=== PATIENT | male | born 1945 | race Caucasian/White ===

== ENCOUNTER 2020-08-29 03:03 | Outpatient (CLI) | payer OTHER, SELFPAY ==
[2020-08-29 12:22] LABS: HCT 48.5 % (40.0-50.0); HGB 16.6 g/dL (13.5-17.5); MCH 33.3 pg (27.0-33.0); MCHC 34.2 % (32.0-36.0); MCV 97.2 fL (80-95); MPV 9.9 fL (8.0-11.0); Platelet Count 219 10^3/uL (130-400); RBC 4.99 10^6/uL (4.36-5.78); RDW 12.1 % (11.8-14.1); RDW-SD 43.5 fL; WBC 8.98 10^3/uL (4.4-10.8)
[2020-08-29 12:34] LABS: ALT 41 U/L (16-63); AST 24 U/L (15-37); Albumin 3.9 g/dL (3.4-5.0); Alkaline Phosphatase 94 U/L (46-116); Anion Gap 6.6 mmol/L (3-11); BUN 25 mg/dL (7-18); Bilirubin, Total 0.6 mg/dL (0.2-1.0); CO2 29.4 mmol/L (21.0-32.0); CREATININE 1.12 mg/dL (0.70-1.30); Calcium 9.3 mg/dL (8.5-10.1); Calculated LDL 120 mg/dL (<100); Chloride 103 mmol/L (98-107); Cholesterol 197 mg/dL (<200); Glucose 101 mg/dL (74-106); HDL Cholesterol 42 mg/dL (40-60); Potassium 4.5 mmol/L (3.5-5.1); Sodium 139 mmol/L (136-145); Total Protein 7.3 g/dL (6.4-8.2); Triglyceride 175 mg/dL (<150)
[2020-08-30 08:45] LABS: PSA, Screening 9.7 ng/mL (0.0-6.5)
== END 2020-08-29 03:23 ==
PROVIDERS: PCP Family Medicine; Visit Provider Family Medicine
DX: Z00.00 Encounter for general adult medical examination without abnormal findings (principal); E78.5 Hyperlipidemia, unspecified; I10 Essential (primary) hypertension; I48.0 Paroxysmal atrial fibrillation; R97.20 Elevated prostate specific antigen [PSA]; Z12.5 Encounter for screening for malignant neoplasm of prostate
CPT/HCPCS: 36415; 80053; 80061; 84153; 85027

== ENCOUNTER 2020-09-26 18:35 | Outpatient (REF) | payer OTHER, SELFPAY | END 2020-09-26 18:55 | LOC: LBN 18:35 | PROVIDERS: PCP Family Medicine; Visit Provider Nurse Practitioner Gerontology | DX: R97.20 Elevated prostate specific antigen [PSA] (principal) | CPT/HCPCS: 84154 ==

== ENCOUNTER 2021-03-25 08:39 | Outpatient (CLI) | payer OTHER, SELFPAY ==
[2021-03-25 22:08] LABS: PSA, Diagnostic 11.6 ng/mL (0.0-6.5)
== END 2021-03-25 08:40 | disposition home or self-care (01) ==
PROVIDERS: Nurse Practitioner Gerontology; PCP Nurse Practitioner Family; Visit Provider Nurse Practitioner Family
DX: R97.20 Elevated prostate specific antigen [PSA] (principal)
CPT/HCPCS: 36415; 84153; 84154

== ENCOUNTER → 2021-04-22 09:20 | Outpatient (BNVA) | payer OTHER, SELFPAY | PROVIDERS: PCP Nurse Practitioner Family; Referring Provider Family Medicine; Visit Provider Nurse Practitioner Gerontology | DX: R39.89 Other symptoms and signs involving the genitourinary system (principal); R97.20 Elevated prostate specific antigen [PSA] | CPT/HCPCS: 99214 ==

== ENCOUNTER 2021-10-13 04:03 | Outpatient (CLI) | payer OTHER, SELFPAY | END 2021-10-13 04:04 | disposition home or self-care (01) | LOC: LBO 04:04 | PROVIDERS: PCP Nurse Practitioner Family; Visit Provider Nurse Practitioner Gerontology | DX: R97.20 Elevated prostate specific antigen [PSA] (principal) | CPT/HCPCS: 36415; 84153 ==

== ENCOUNTER → 2021-10-22 08:14 | Outpatient (BNVA) | payer OTHER, SELFPAY | PROVIDERS: PCP Nurse Practitioner Family; Visit Provider Nurse Practitioner Gerontology | DX: R97.20 Elevated prostate specific antigen [PSA] (principal); N40.1 Benign prostatic hyperplasia with lower urinary tract symptoms; R35.1 Nocturia | CPT/HCPCS: 99214 ==

== ENCOUNTER 2022-04-15 03:17 | Outpatient (CLI) | payer OTHER, SELFPAY ==
[2022-04-15 20:48] LABS: PSA, Diagnostic 9.4 ng/mL (<=6.5)
== END 2022-04-15 03:18 | disposition home or self-care (01) ==
LOC: LBO 03:17
PROVIDERS: PCP Nurse Practitioner Family; Visit Provider Nurse Practitioner Gerontology
DX: R97.20 Elevated prostate specific antigen [PSA] (principal)
CPT/HCPCS: 36415; 84153

== ENCOUNTER → 2022-04-30 08:44 | Outpatient (BNVA) | payer OTHER, SELFPAY | PROVIDERS: PCP Nurse Practitioner Family; Referring Provider Nurse Practitioner Family; Visit Provider Nurse Practitioner Gerontology | DX: N40.1 Benign prostatic hyperplasia with lower urinary tract symptoms (principal); R35.1 Nocturia; R97.20 Elevated prostate specific antigen [PSA] | CPT/HCPCS: 99214 ==

== ENCOUNTER 2022-08-21 01:11 | Outpatient (CLI) | payer OTHER, SELFPAY ==
[2022-08-21 10:30] LABS: CREATININE 1.1 mg/dL (0.70-1.30); Estimated GFR 68.71 (mL/min/1.73m2); Potassium 3.9 mmol/L (3.5-5.1)
== END 2022-08-21 01:12 | disposition home or self-care (01) ==
LOC: LOS 01:11
PROVIDERS: PCP Nurse Practitioner Family; Visit Provider Nurse Practitioner Family
DX: I10 Essential (primary) hypertension (principal)
CPT/HCPCS: 36415; 82565; 84132

== ENCOUNTER 2022-10-22 02:13 | Outpatient (CLI) | payer MEDICARE, SELFPAY ==
[2022-10-22 17:51] LABS: PSA, Diagnostic 8.6 ng/mL (<=6.5)
== END 2022-10-22 02:14 | disposition home or self-care (01) ==
PROVIDERS: PCP Nurse Practitioner Family; Visit Provider Nurse Practitioner Gerontology
DX: R97.20 Elevated prostate specific antigen [PSA] (principal)
CPT/HCPCS: 36415; 84153

== ENCOUNTER → 2022-10-29 08:19 | Outpatient (BNVA) | payer MEDICARE, SELFPAY | PROVIDERS: PCP Nurse Practitioner Family; Visit Provider Nurse Practitioner Gerontology | DX: R97.20 Elevated prostate specific antigen [PSA] (principal) | CPT/HCPCS: 99213 ==

== ENCOUNTER → 2023-02-04 09:05 | Outpatient (BNVA) | payer MEDICARE, SELFPAY | PROVIDERS: PCP Nurse Practitioner Family; Referring Provider Nurse Practitioner Family; Visit Provider Physical Therapy Assistant | DX: Z12.11 Encounter for screening for malignant neoplasm of colon (principal) ==

== ENCOUNTER 2023-02-18 07:00 | Day surgery (SDC) | payer MEDICARE, SELFPAY ==
--- NOTE | 2023-02-17 19:16 | W.PM.DSUDISC ---
Date of service: 02/18/23 Time of Service: 08:54 Discharge Plan Disposition Patient Disposition: Home Condition: Good Discharge Details Reason For Visit: Screening colonoscopy Attending Provider: Timmy López Primary Care Provider: Ruslan Mendoza Home Meds and New Rx's Prescriptions: Continued losartan 50 mg tablet 50 mg PO DAILY Qty: 90 3RF trazodone 50 mg tablet 50 mg PO QHS PRN (Reason: sleep) Qty: 90 3RF atenolol 50 mg tablet 50 mg PO BID Qty: 180 2RF aspirin 325 MG tablet 1 tab DAILY Discontinued bisacodyl [Dulcolax (bisacodyl)] 5 mg tablet,delayed release (DR/EC) 5 mg PO ONCE Qty: 4 0RF Rx Instructions: Take per colonoscopy instructions provided by ordering providers office polyethylene glycol 3350 17 gram/dose powder 17 g PO ONCE Qty: 238 0RF Rx Instructions: Take per colonoscopy instructions provided by ordering providers office Discharge Instructions Instructions: Diverticulosis (GEN), Diverticulosis Diet (GEN), Colorectal Polyps (GEN) Additional Instructions: Wilber, we were able to complete your colonoscopy today without any difficulty. I did find 2 polyps, immediately adjacent to 1 another, around 45 cm from your anus. They have some features that look more like inflammatory polyps than true polyps, but I sent both off for official pathology reports. I will be in touch when I have those results with any final recommendations. You also have a fair amount of sigmoid diverticulosis. We have attached some information here regarding general management of diverticular disease. Based on your family history, you should consider another screening colonoscopy in 5 years. However, you should note that there is not a consensus about the benefit of screening colonoscopy among patients approaching 85 years of age. I would encourage you to discuss this with your primary care doctor at that point. 1. If tolerated, consume a soft, low fiber diet for 1-2 days. 2. Do not drive, drink alcohol, operate machinery, make critical decisions, or do activities that require coordination or balance for 24 hours. 3. Because air was put into your colon during the procedure, expelling air from your rectum (passing gas or farting) is normal. 4. You may not have a bowel movement for 1-3 days because of the colonoscopy prep. This is normal. 5. Go directly to the emergency room if you notice any of the following: Develop chills (warm to touch), or if you have a thermometer and your temperature is above 101 Difficulty breathing or difficultly swallowing Persistent vomiting Severe abdominal pain, other than gas cramps Severe chest pain Black, tarry stools Any bleeding ? exceeding one tablespoon 6. Call your physician if the site where your intravenous was started becomes red, swollen, painful, and warm to touch. 7. Your physician has reviewed your pre-procedure medications. Please continue to take those medications as previously ordered. You will be given specific information/education regarding any changes to your medications before leaving. Activity:: Activity as Tolerated Diet:: As Tolerated Discharge Orders Discharge Orders: Discharge Order (Routine); Ordered 02/17/23 Ordered By: Timmy López DS: Diagnosis Discharge Diagnosis (1) Screening for colon cancer: Status: Acute Asessment and Plan: Follow-up on polypectomy results
--- NOTE | 2023-02-17 19:18 | W.COLOREPORT ---
Date of service: 02/18/23 Time of Service: 08:56 Colonoscopy Report Date of procedure: 02/18/23 Pre-op diagnosis general: Screening colonsocopy Post-op diagnosis procedure note: other (Diverticulosis, colon polyps) Procedure: Colonoscopy with polypectomy Surgeon: Timmy López Anesthesia Type: General:No Airway Estimated blood loss (mL): 5 Pathology: other (Colon polyp at 45 cm) Complications: None Disposition: same day Indications: Alex is a 77 year old male with 2 second degree relatives with colon cancer. He is here for a screening colonoscopy Prep: Miralax/Dulcolax Procedure Start Time: 08:29 Procedure End Time: 08:43 Retraction Time: 9 Findings: To 0.25 cm polyps at 45 cm cold forceps Procedure Description: After the induction of monitored anesthetic care, and with the patient in left lateral decubitus position, I began by performing an external anorectal exam.? Perineum and skin were normal, as was the anal verge.? There was no evidence of external hemorrhoids.? Next, I performed a digital rectal exam.? I did not appreciate any abnormal findings.? Next, I advanced a colonoscope into the rectal vault.? I performed retroflexion.? There is grade 1 internal hemorrhoids.? Using insufflation, I then advanced the colonoscope beyond the rectal folds and into the sigmoid colon before advancing towards the cecum.? The quality of the prep was excellent.? There was sigmoid diverticulosis the scope was noted to be in the cecum by identification of the ileocecal valve and appendiceal orifice.? I then began withdrawing the colonoscope using repeated irrigation as necessary for full evaluation of the colonic mucosa. Around 45 cm from the anal verge I identified a 0.25 cm polyp. ?It appeared sessile in character. ?I was able to remove this with a cold forcep polypectomy. ?I examined the site, and there was minimal bleeding. ?Once this was completed, I continued to withdraw the scope and examine the remainder of the colonic mucosa.?Once the scope was withdrawn to the level of the rectum, great care was taken to examine portions of the rectal folds.? Finally, the scope was withdrawn and the patient was brought to the same-day surgery recovery unit as the anesthetic wore off. ?The findings and instructions were shared with the patient prior to discharge.
--- NOTE | 2023-02-18 08:38 | BOWEL_PTH ---
PATIENT: Wilber Ortiz LOC: [facility] U#:[id number] AGE/SX: 77/M ROOM: RE02/18/[address]: Timmy López MD : [id number] BED: DIS: 02/18/2023 SPEC #: [id number] RECD: 02/18/23 12:42 STATUS: TARAH REQ #: [id number] PETER: 02/18/23 08:[address]: Timmy López DEPT: Surgical Specimen RECD BY: Fozia Michele ENTERED: 02/18/23 12:42 SP TYPE: Bowel OTHR DR: Ruslan Mendoza, SHIP CAPTAIN Tissues: 1 - BIOPSY BOWEL Procedures: GROSS AND MICRO LEVEL 4 Comments: [id number]
[2023-02-18 08:52] VITALS: BP 127/68; PULSE 69; RESP 16; TEMP 36; O2SAT 98
--- NOTE | 2023-02-18 09:10 | W.ANESPOSTOP ---
Postoperative Evaluation Date, Time and Location Date Performed: 02/18/23 Time Performed: 09:10 Patient Location: Day Surgery Unit Vital Signs Most Recent Imported Vital Signs: Most Recent Vital Signs Temp Pulse Resp BP Pulse Ox 36 C L 69 16 127/68 98 02/18/23 08:52 02/18/23 08:52 02/18/23 08:52 02/18/23 08:52 02/18/23 08:52 Pain Score Most Recent Pain Score: Most Recent Pain Score Pain Level 0 02/18/23 08:52 Assessment Mental Status: Awake (Alert & Oriented to Patient Baseline) Airway and Respiratory Function: Patent airway with normal (patient baseline) respiratory exam Cardiovascular Function: Hemodynamically Stable Hydration Status: Adequately Hydrated Nausea & Vomiting: No Nausea or Vomiting Pain: Pt. Denies Any Pain Peripheral Nerve Block: Patient did not receive a nerve block
[2023-02-18 09:22] VITALS: BP 159/74; PULSE 56; RESP 18; TEMP 36.4; O2SAT 98
== END 2023-02-18 09:47 | disposition home or self-care (01) ==
PROVIDERS: PCP Nurse Practitioner Family; Visit Provider Surgery
PROC: 0DJD8ZZ Inspection of Lower Intestinal Tract, Via Natural or Artificial Opening Endoscopic (ICD-10-PCS; CPT 45378; principal; 2023-02-18 08:15)
DX: Z12.11 Encounter for screening for malignant neoplasm of colon (principal); K63.5 Polyp of colon; K57.30 Diverticulosis of large intestine without perforation or abscess without bleeding; Z80.0 Family history of malignant neoplasm of digestive organs; K64.0 First degree hemorrhoids; K63.89 Other specified diseases of intestine
CPT/HCPCS: 45380; 88305; J2001

== ENCOUNTER 2023-04-28 04:02 | Outpatient (CLI) | payer MEDICARE, SELFPAY ==
[2023-04-28 21:53] LABS: PSA, Diagnostic 8.7 ng/mL (<=6.5)
== END 2023-04-28 04:03 | disposition home or self-care (01) ==
LOC: LBO 04:02
PROVIDERS: PCP Nurse Practitioner Family; Visit Provider Nurse Practitioner Gerontology
DX: R97.20 Elevated prostate specific antigen [PSA] (principal)
CPT/HCPCS: 36415; 84153

== ENCOUNTER → 2023-05-05 08:10 | Outpatient (BNVA) | payer MEDICARE, SELFPAY | PROVIDERS: PCP Nurse Practitioner Family; Visit Provider Nurse Practitioner Gerontology | DX: R97.20 Elevated prostate specific antigen [PSA] (principal); I10 Essential (primary) hypertension | CPT/HCPCS: 99213 ==

== ENCOUNTER 2023-09-14 04:02 | Outpatient (CLI) | payer MEDICARE, SELFPAY ==
[2023-09-14 14:23] LABS: Calculated LDL 95 mg/dL (<100); Cholesterol 174 mg/dL (<200); Estimated GFR 76.56 (mL/min/1.73m2); HDL Cholesterol 46 mg/dL (40-60); Potassium 3.9 mmol/L (3.5-5.1); Triglyceride 166 mg/dL (<150)
== END 2023-09-14 04:03 | disposition home or self-care (01) ==
LOC: LBO 04:03
PROVIDERS: PCP Nurse Practitioner Family; Visit Provider Nurse Practitioner Family
DX: I10 Essential (primary) hypertension (principal); Z13.6 Encounter for screening for cardiovascular disorders
CPT/HCPCS: 36415; 80061; 82565; 84132

== ENCOUNTER 2023-10-26 04:58 | Outpatient (CLI) | payer MEDICARE, SELFPAY ==
[2023-10-26 17:56] LABS: PSA, Diagnostic 8.6 ng/mL (<=6.5)
== END 2023-10-26 04:59 | disposition home or self-care (01) ==
LOC: LBO 04:58
PROVIDERS: PCP Nurse Practitioner Family; Visit Provider Nurse Practitioner Gerontology
DX: R97.20 Elevated prostate specific antigen [PSA] (principal)
CPT/HCPCS: 36415; 84153

== ENCOUNTER → 2023-11-02 08:16 | Outpatient (BNVA) | payer MEDICARE, SELFPAY | PROVIDERS: PCP Nurse Practitioner Family; Visit Provider Nurse Practitioner Gerontology | DX: N40.1 Benign prostatic hyperplasia with lower urinary tract symptoms (principal); R35.1 Nocturia; R97.20 Elevated prostate specific antigen [PSA] | CPT/HCPCS: 99213 ==

== ENCOUNTER 2023-11-30 05:21 | Outpatient (CLI) | payer MEDICARE, SELFPAY ==
[2023-11-30 10:03] LABS: Hemoglobin A1C 5.5 % (<5.7)
== END 2023-11-30 05:22 | disposition home or self-care (01) ==
PROVIDERS: PCP Nurse Practitioner Family; Visit Provider Nurse Practitioner Family
DX: Z13.1 Encounter for screening for diabetes mellitus (principal)
CPT/HCPCS: 36415; 83036

== ENCOUNTER 2024-04-25 02:00 | Outpatient (CLI) | payer MEDICARE, SELFPAY ==
[2024-04-25 19:45] LABS: PSA, Diagnostic 8.9 ng/mL (<=6.5)
== END 2024-04-25 02:01 | disposition home or self-care (01) ==
LOC: LBO 02:01
PROVIDERS: PCP Nurse Practitioner Family; Visit Provider Nurse Practitioner Gerontology
DX: R97.20 Elevated prostate specific antigen [PSA] (principal)
CPT/HCPCS: 36415; 84153

== ENCOUNTER → 2024-05-02 08:14 | Outpatient (BNVA) | payer MEDICARE, SELFPAY | PROVIDERS: PCP Nurse Practitioner Family; Visit Provider Nurse Practitioner Gerontology | DX: R35.1 Nocturia (principal); R97.20 Elevated prostate specific antigen [PSA] | CPT/HCPCS: 51798; 99213 ==

== ENCOUNTER → 2024-05-02 10:29 | Outpatient (BNVA) | payer MEDICARE, SELFPAY | PROVIDERS: PCP Nurse Practitioner Family; Referring Provider Nurse Practitioner Family; Visit Provider Podiatrist | DX: B35.3 Tinea pedis (principal); G62.9 Polyneuropathy, unspecified; B35.1 Tinea unguium; L60.3 Nail dystrophy; M79.671 Pain in right foot; M79.672 Pain in left foot | CPT/HCPCS: 11721; 99214 ==

== ENCOUNTER 2024-09-21 01:14 | Outpatient (CLI) | payer MEDICARE, SELFPAY ==
[2024-09-21 09:47] LABS: Anion Gap 5.9 mmol/L (3-11); BUN 24 mg/dL (7-18); CO2 31.1 mmol/L (21.0-32.0); Calcium 9.4 mg/dL (8.5-10.1); Calculated LDL 111 mg/dL (<100); Chloride 100 mmol/L (98-107); Cholesterol 187 mg/dL (<200); Estimated GFR 76.08 (mL/min/1.73m2); Glucose 101 mg/dL (74-106); HDL Cholesterol 50 mg/dL (40-60); Potassium 4.3 mmol/L (3.5-5.1); Sodium 137 mmol/L (136-145); Triglyceride 134 mg/dL (<150)
== END 2024-09-21 01:15 | disposition home or self-care (01) ==
LOC: LBO 01:14
PROVIDERS: PCP Nurse Practitioner Family; Visit Provider Nurse Practitioner Family
DX: Z13.1 Encounter for screening for diabetes mellitus (principal); Z13.6 Encounter for screening for cardiovascular disorders
CPT/HCPCS: 36415; 80048; 80061

== ENCOUNTER 2024-11-01 03:10 | Outpatient (CLI) | payer MEDICARE, SELFPAY ==
[2024-11-01 19:57] LABS: PSA, Diagnostic 7.6 ng/mL (<=6.5)
== END 2024-11-01 03:11 | disposition home or self-care (01) ==
PROVIDERS: PCP Nurse Practitioner Family; Visit Provider Nurse Practitioner Gerontology
DX: R97.20 Elevated prostate specific antigen [PSA] (principal); R39.9 Unspecified symptoms and signs involving the genitourinary system
CPT/HCPCS: 36415; 84153

== ENCOUNTER → 2024-11-08 08:48 | Outpatient (BNVA) | payer MEDICARE, SELFPAY | PROVIDERS: PCP Nurse Practitioner Family; Referring Provider Nurse Practitioner Family; Visit Provider Nurse Practitioner Gerontology | DX: N40.1 Benign prostatic hyperplasia with lower urinary tract symptoms (principal); R35.1 Nocturia; R97.20 Elevated prostate specific antigen [PSA] | CPT/HCPCS: 51798; 99213 ==

== ENCOUNTER 2025-05-02 02:23 | Outpatient (CLI) | payer MEDICARE, SELFPAY ==
[2025-05-02 18:32] LABS: PSA, Diagnostic 8.6 ng/mL (<=6.5)
== END 2025-05-02 02:24 | disposition home or self-care (01) ==
LOC: LBO 02:24
PROVIDERS: PCP Nurse Practitioner Family; Visit Provider Nurse Practitioner Gerontology
DX: R97.20 Elevated prostate specific antigen [PSA] (principal)
CPT/HCPCS: 36415; 84153

== ENCOUNTER → 2025-05-09 08:49 | Outpatient (BNVA) | payer MEDICARE, SELFPAY | PROVIDERS: PCP Nurse Practitioner Family; Referring Provider Nurse Practitioner Family; Visit Provider Nurse Practitioner Gerontology | DX: R39.9 Unspecified symptoms and signs involving the genitourinary system (principal); R97.20 Elevated prostate specific antigen [PSA] | CPT/HCPCS: 99213; 51798 ==